=== PATIENT | female | born 1960 | race Caucasian/White ===

== ENCOUNTER 2016-06-07 12:09 | Emergency (ER) | payer BC, OTHER ==
[2016-06-07 13:18] VITALS: BP 136/78
--- NOTE | 2016-06-07 13:46 | UC ---
Throat Pain/Nasal Benja HPI - HPI Summary HPI Summary: sinus congestion, SOB for the past week, - History of Current Complaint Chief Complaint: UCRespiratory Stated Complaint: SINUS, COUGH Time Seen by Provider: 06/07/16 13:35 Hx Obtained From: Patient Hx Last Menstrual Period: 5 yrs ?: No Onset/Duration: Sudden Onset, Lasting Days Severity: Moderate Pain Intensity: 6 Pain Scale Used: 0-10 Numeric Cough: Nonproductive Associated Signs & Symptoms: Positive: Dysphagia, Wheezing, Hoarseness, Sinus Discomfort, Nasal Discharge - Epiglottits Risk Factors Epiglottis Risk Factors: Negative - Allergies/Home Medications Allergies/Adverse Reactions: Allergies Allergy/AdvReac Type Severity Reaction Status Date / Time No Known Allergies Allergy Verified 06/07/16 13:18 Home Medications: Home Medications Chlorpheniramine-Phenylephrine [Nighttime Sinus Congestio] 2 tab PO BEDTIME PRN 06/07/16 [History Confirmed 06/07/16] Zolpidem TAB* [Ambien TAB*] 5 mg PO BEDTIME PRN 06/07/16 [History Confirmed ] buPROPion TAB* [Wellbutrin TAB*] 1 tab PO DAILY 06/07/16 [History Confirmed ] PMH/Surg Hx/FS Hx/Imm Hx Previously Healthy: Yes - Surgical History Surgical History: Yes Surgery Procedure, Year, and Place: . appy. charlie. ankle - Family History Known Family History: Positive: Hypertension - Social History Alcohol Use: Occasionally Substance Use Type: None Smoking Status (MU): Never Smoked Tobacco Review of Systems Constitutional: Fatigue Skin: Negative Eyes: Negative ENT: Ear Ache, Nasal Discharge Respiratory: Shortness Of Breath, Cough Cardiovascular: Negative Gastrointestinal: Negative Genitourinary: Negative Motor: Negative Neurovascular: Negative Musculoskeletal: Negative Neurological: Headache Psychological: Negative All Other Systems Reviewed And Are Negative: Yes Physical Exam Triage Information Reviewed: Yes Appearance: Well-Nourished, Ill-Appearing, Pain Distress Vital Signs: Initial Vital Signs Temp 98.3 F 06/07/16 13:13 Pulse 74 06/07/16 13:13 Resp 18 06/07/16 13:13 BP 136/78 06/07/16 13:13 Pulse Ox 99 06/07/16 13:13 Vital Signs Reviewed: Yes Eye Exam: Normal Eyes: Positive: Conjunctiva Clear ENT Exam: Normal ENT: Positive: Normal ENT inspection, Hearing grossly normal, Pharyngeal erythema, Nasal congestion, Nasal drainage, TM red Dental Exam: Normal Neck exam: Normal Neck: Positive: Supple, Nontender, No Lymphadenopathy Respiratory: Positive: Chest non-tender, No respiratory distress, No accessory muscle use, Decreased breath sounds - upper airway, Wheezing, Inspiration Cardiovascular Exam: Normal Cardiovascular: Positive: RRR, No Murmur, Pulses Normal Abdominal Exam: Normal Abdomen Description: Positive: Nontender, No Organomegaly, Soft Bowel Sounds: Positive: Present Musculoskeletal Exam: Normal Musculoskeletal: Positive: Strength Intact, ROM Intact, No Edema Neurological Exam: Normal Neurological: Positive: Alert, Muscle Tone Normal Psychological Exam: Normal Skin Exam: Normal Throat Pain/Nasal Course/Dx - Course Course Of Treatment: hx obtained, exam performed, meds reviewed, and prescribed , educated on spacer use, - Differential Dx/Diagnosis Differential Diagnosis/HQI/PQRI: Influenza, Laryngitis, Otitis Media, Pharyngitis, Sinusitis, Tonsillitis, URI Provider Diagnoses: sinusitis. bronchospasm Discharge - Discharge Plan Condition: Stable Disposition: HOME Prescriptions: Albuterol HFA INHALER* [Ventolin HFA Inhaler*] 2 puff INH Q4H PRN #1 mdi PRN Reason: Cough Amoxicillin/Clavulanate TAB* [Augmentin TAB 875*] 875 mg PO BID #20 tab Patient Education Materials: How to Use a Metered-Dose Inhaler and a Spacer (ED ) Forms: *Work Release Additional Instructions: Take the medications as prescribed. Increase your fluid intake and get plenty of rest.
== END 2016-06-07 14:00 | disposition home or self-care (01) ==
LOC: UCCORT 12:09
DX: J32.9 Chronic sinusitis, unspecified (principal); J98.01 Acute bronchospasm
CPT/HCPCS: 99212; G0463

== ENCOUNTER 2017-07-26 10:27 | Emergency (ER) | payer BC ==
[2017-07-26 10:54] VITALS: BP 151/82
--- NOTE | 2017-07-26 11:44 | UC ---
Respiratory Complaint HPI - HPI Summary HPI Summary: 57 yo female with cough x 12 days getting progressively sicker now with fever/chills and headache minimal since symptoms mild myalgias no CP or sob - History of Current Complaint Chief Complaint: UCGeneralIllness Stated Complaint: HEADACHE/COUGH/ACHES Time Seen by Provider: 07/26/17 11:34 Hx Obtained From: Patient Hx Last Menstrual Period: 5 yrs Onset/Duration: Gradual Onset Timing: Constant Severity Initially: Mild Severity Currently: Moderate Pain Intensity: 5 Pain Scale Used: 0-10 Numeric Character: Cough: Nonproductive Aggravating Factors: Nothing Alleviating Factors: Nothing Associated Signs And Symptoms: Positive: Fever, Chills - Allergies/Home Medications Allergies/Adverse Reactions: Allergies Allergy/AdvReac Type Severity Reaction Status Date / Time No Known Allergies Allergy Verified 07/26/17 10:47 Home Medications: Home Medications Citalopram TAB* [Celexa TAB*] 50 mg PO DAILY 07/26/17 [History Confirmed ] PMH/Surg Hx/FS Hx/Imm Hx Previously Healthy: Yes Psychological History: Anxiety, Depression - Surgical History Surgical History: Yes Surgery Procedure, Year, and Place: . appy. [facility]. ankle - Family History Known Family History: Positive: Hypertension - Social History Alcohol Use: Occasionally Substance Use Type: None Smoking Status (MU): Never Smoked Tobacco Review of Systems Constitutional: Fever, Chills, Fatigue Skin: Negative Eyes: Negative ENT: Negative Respiratory: Cough Cardiovascular: Negative Gastrointestinal: Negative Genitourinary: Negative Motor: Negative Neurovascular: Negative Musculoskeletal: Negative Neurological: Headache Psychological: Negative Is Patient Immunocompromised?: No All Other Systems Reviewed And Are Negative: Yes Physical Exam Triage Information Reviewed: Yes Appearance: Well-Appearing, No Pain Distress, Well-Nourished Vital Signs: Initial Vital Signs Temp 100.6 F 07/26/17 10:49 Pulse 100 07/26/17 10:49 Resp 18 07/26/17 10:49 BP 151/82 07/26/17 10:49 Pulse Ox 98 07/26/17 10:49 Vital Signs Reviewed: Yes Eyes: Positive: Conjunctiva Clear ENT: Positive: Pharyngeal erythema, Uvula midline. Negative: Hearing grossly normal, Nasal congestion, Nasal drainage, Tonsillar exudate, Trismus, Muffled voice, Hoarse voice, Dental tenderness, Sinus tenderness Neck: Positive: Supple, Nontender, No Lymphadenopathy Respiratory: Positive: No respiratory distress, No accessory muscle use, Crackles - right base Cardiovascular: Positive: RRR, No Murmur Musculoskeletal: Positive: ROM Intact, No Edema Neurological: Positive: Alert Psychological Exam: Normal Skin Exam: Normal UC Diagnostic Evaluation - Laboratory O2 Sat by Pulse Oximetry: 98 - nnormal/not hypoxic - Radiology Xray Interpretation: No Acute Changes Radiology Interpretation Completed By: Radiologist Respiratory Course/Dx - Differential Dx/Diagnosis Provider Diagnoses: acute bronchitis Discharge - Sign-Out/Discharge Documenting (check all that apply): Discharge - Discharge Plan Condition: Stable Disposition: HOME Prescriptions: Amoxicillin PO (*) [Amoxicillin 875 MG (*)] 875 mg PO BID #20 tab Patient Education Materials: Acute Bronchitis (ED) Forms: *Work Release Referrals: Sondra Montemayor, [employer] [Primary Care Provider] - 5 Days (if not better) Additional Instructions: your BP was a little high here it may be due to your illness I suggest your recheck it in 1-2 mos plain robitussin or mucinex - Billing Disposition and Condition Condition: STABLE Disposition: HOME
--- NOTE | 2017-07-26 12:00 | RAD ---
HISTORY: Cough, right lower lobe rales COMPARISONS: None VIEWS: 4: Frontal dual-energy and lateral views of the chest. FINDINGS: CARDIOMEDIASTINAL SILHOUETTE: The cardiomediastinal silhouette is normal. ASPEN: The aspen are normal. PLEURA: The costophrenic angles are sharp. No pleural abnormalities are noted. LUNG PARENCHYMA: The lungs are clear. ABDOMEN: The upper abdomen is clear. There is no subphrenic gas. BONES AND SOFT TISSUES: No bone or soft tissue abnormalities are noted. OTHER: None. IMPRESSION: NO ACTIVE CARDIOPULMONARY DISEASE.
== END 2017-07-26 12:10 | disposition home or self-care (01) ==
LOC: UCCORT 10:27
DX: J20.9 Acute bronchitis, unspecified (principal)
CPT/HCPCS: 71046; 99212; G0463